=== PATIENT | female | born 1935 | race Caucasian/White ===

== ENCOUNTER → 2017-08-11 | Outpatient (CLI) | payer MEDICARE, OTHER ==
[~2017-08-11] MED LIST: ACET500T68 PO; ANAS1TAB34 PO; ASPI-1471 PO; ATOR10TA65 PO; ATOR20TA22 PO; BETA15CR2 TP; HYDR-420 PO; LEVO25TA57 PO; LEVO25TA61 PO; NOR25 PO; OMEP-137 PO; TRI50 FT; TRIA-20 PO
--- NOTE | 2017-08-11 11:41 | RADIOLOGY IMAGING REPORT ---
FACILITY: [facility] PATIENT NAME: Oralia Perez : 1935 MR: [id number] V: [id number] EXAM DATE: ORDERING PHYSICIAN: JERAD LANE TECHNOLOGIST: Location: [facility] Patient: Oralia Perez : 1935 Visit/Account:[id number] Date of Sevice: 08/11/2017 Exam type: CHEST wall ultrasound History: Hx of cancer, double mastectomy, pain in tissue of ches Comparison: None. Findings: Multiple images were taken over the anterior chest wall bilaterally revealing no abnormal collections or mass lesions. There is no evidence of acoustic shadowing. IMPRESSION: 1. No abnormality of the anterior chest wall was identified sonographically. Clinical follow-up rec ommended for patient's palpable findings Report Dictated By: Nuha Lomas MD at 08/11/2017 11:36 AM Report E-Signed By: Nuha Lomas MD at 08/11/2017 11:37 AM WSN:[email or web address]
== END ==
LOC: US 04:36
PROVIDERS: ATTEND Family Medicine
DX: R22.9 Localized swelling, mass and lump, unspecified (principal); Z90.13 Acquired absence of bilateral breasts and nipples; R52 Pain, unspecified; Z85.3 Personal history of malignant neoplasm of breast
CPT/HCPCS: 76604

== ENCOUNTER → 2018-01-15 | Outpatient (CLI) | payer MEDICARE, OTHER, MEDICAID ==
[~2018-01-15] MED LIST changes: +DICL100G39 TOP; +LISI5TAB25 PO
[2018-01-15 17:58] LABS: PLATELET COUNT, AUTOMATED 229 K/uL (150-450)
== END ==
LOC: LAB 16:13
PROVIDERS: ATTEND Family Medicine
DX: I10 Essential (primary) hypertension (principal)
CPT/HCPCS: 36415; 82040; 82247; 82310; 82374; 82435; 82565; 82947; 84075; 84132; 84155; 84295; 84443; 84450; 84460; 84520; 85025

== ENCOUNTER → 2018-01-31 | Outpatient (CLI) | payer MEDICARE, OTHER, MEDICAID ==
--- NOTE | 2018-01-31 09:55 | RADIOLOGY IMAGING REPORT ---
FACILITY: [facility] PATIENT NAME: Oralia Perez : 1935 MR: [id number] V: [id number] EXAM DATE: ORDERING PHYSICIAN: JERAD LANE TECHNOLOGIST: Location: [facility] - [place] Patient: Oralia Perez : 1935 Visit/Account:[id number] Date of Sevice: 01/31/2018 Exam type: CHEST PA AND LAT History: Chest wall tenderness, mastectomy in 2012 Comparison: None. Findings: The lungs are free of acute effusions, infiltrates or edema. Cardiac silhouette is normal in size. There is marked ectasia the thoracic aorta. Vertebroplasty changes are seen in the upper lumbar spin e. The spinal stimulator projecting over the thoracic spine. IMPRESSION: 1. No acute cardiac pulmonary process is seen Report Dictated By: Nuha Lomas MD at 01/31/2018 9:19 AM Report E-Signed By: Nuha Lomas MD at 01/31/2018 9:50 AM WSN:[email or web address]
--- NOTE | 2018-01-31 09:56 | RADIOLOGY IMAGING REPORT ---
[place] [facility] [place] NAME: Oralia Perez : 1935 MR: [id number] V: [id number] EXAM DATE: ORDERING PHYSICIAN: JERAD LANE TECHNOLOGIST: Location: [facility] Patient: Oralia Perez : 1935 Visit/Account:[id number] Date of Sevice: 01/31/2018 Exam type: CHEST History: lumps bilateral, patient feels changing and tender Comparison: August 11, 2017. Findings: Multiple sonographic images were obtained over the right and left lateral anterior chest wall in loca tion of patient's palpable findings. There is no demonstration of solid mass or cystic lesion. IMPRESSION: 1. No sonographic abnormality identified over the right or left lateral chest wall in location of pa tient's apparent palpable findings. If this remains of strong clinical concern MR of the chest wall may be helpful with and without contrast Report Dictated By: Nuha Lomas MD at 01/31/2018 9:50 AM Report E-Signed By: Nuha Lomas MD at 01/31/2018 9:52 AM WSN:[email or web address]
== END ==
LOC: US 07:04
PROVIDERS: ATTEND Family Medicine
DX: C50.919 Malignant neoplasm of unspecified site of unspecified female breast (principal); R07.89 Other chest pain
CPT/HCPCS: 71046; 76604

== ENCOUNTER → 2018-04-10 | Outpatient (CLI) | payer MEDICARE, MEDICAID ==
[~2018-04-10] MED LIST changes: +[UNRECOGNIZED DRUG - CODE] PO
== END ==
LOC: ZZSPRING 01:18
PROVIDERS: ATTEND Family Medicine
DX: N18.9 Chronic kidney disease, unspecified (principal)
CPT/HCPCS: 36415; 82040; 82247; 82310; 82374; 82435; 82565; 82947; 84075; 84132; 84155; 84295; 84450; 84460; 84520

== ENCOUNTER → 2018-07-06 | Outpatient (CLI) | payer MEDICARE, MEDICAID ==
[~2018-07-06] MED LIST changes: +MULT1CAP59 PO; +OXYC5CAP21 PO
== END ==
LOC: MRI 01:48
PROVIDERS: ATTEND Family Medicine
DX: Z02.9 Encounter for administrative examinations, unspecified (principal)

== ENCOUNTER → 2018-07-10 | Outpatient (CLI) | payer MEDICARE, MEDICAID | LOC: US 01:21 | PROVIDERS: ATTEND Family Medicine | DX: Z02.9 Encounter for administrative examinations, unspecified (principal) ==

== ENCOUNTER 2018-07-21 09:12 | Emergency (ER) | payer MEDICARE, MEDICAID ==
--- NOTE | 2018-07-21 09:14 | ER Report ---
History and Physical Time Seen By MD: 09:16 HPI/ROS CHIEF COMPLAINT: Abdominal pain HISTORY OF PRESENT ILLNESS: Patient is an 83-year-old female who has been experiencing abdominal pain over the last 3 weeks. She has seen her primary care provider and is scheduled for imaging if the pain persist. The son who takes care of both of his parents just found out last evening that she is having fairly severe pain so he brought her to the emergency department for evaluation. Patient has a history of back surgeries in pain and has some "electrodes in her spine" that prevent her from getting an MRI. She states the pain is currently 7 out of 10 in intensity. She reports some nausea with it. She denies any diarrhea. Last bowel movement was last night. She does report problems with constipation and is prescribed stool softeners but is not taking. She is on chronic opiate pain medication which is oxycodone. She denies any fevers or chills. She reports her last meal was this morning at approximately 8:15 and was oatmeal. REVIEW OF SYSTEMS: Constitutional: No fever, no chills. Eyes: No discharge. ENT: No sore throat. Cardiovascular: No chest pain, no palpitations. Respiratory: No cough, no shortness of breath. Gastrointestinal: Right lower quadrant abdominal pain Genitourinary: No hematuria. Musculoskeletal: No back pain. Skin: No rashes. Neurological: No headache. Allergies: Coded Allergies: No Known Drug Allergies (Unverified , 06/08/17) Home Meds Active Scripts Oxycodone Hcl (OXYCODONE HCL) 5 Mg Capsule, 0.5 TAB PO DAILY PRN for pain for 30 Days, #15 CAPSULE Prov:JERAD LANE MD 07/10/18 Lisinopril (LISINOPRIL) 5 Mg Tablet, 1.5 TAB PO DAILY for 90 Days, #135 TAB 4 Refills Prov:JERAD LANE MD 06/26/18 Atorvastatin Calcium (ATORVASTATIN CALCIUM) 10 Mg Tablet, 1 TAB PO QODAY for 90 Days, #90 TAB 3 Refills Prov:JERAD LANE MD 04/03/18 Diclofenac Sodium 1% Gel (VOLTAREN 1% GEL) 100 Gm Gel..gram., 2 GM TOP BID for 30 Days, #1 TUBE 5 Refills Prov:JERAD LANE MD 10/16/18 Diclofenac Sodium 1% Gel (VOLTAREN 1% GEL) 100 Gm Gel..gram., 2 GM TOP QID for 30 Days, #1 TUBE 3 Refills Prov:JERAD LANE MD 11/09/17 Anastrozole (ANASTROZOLE) 1 Mg Tablet, 1 MG PO DAILY for 90 Days, #90 TAB 4 Refills Prov:JERAD LANE MD 07/12/17 Betamethasone/Propylene Glyc (BETAMETHASONE DP AUG 0.05% CRM) 15 Gm Cream..g., 15 GM TP BID for 14 Days, #1 TUBE Prov:JERAD LANE MD 06/08/17 Reported Medications Multivitamin (MULTIVITAMINS) 1 Each Capsule, 1 CAP PO DAILY, CAPSULE Multivitamin of Pts choice. Wants Iron Free 06/04/18 Acetaminophen (TYLENOL EXTRA STRENGTH) 500 Mg Tablet, 1-2 TAB PO TID, CAP 2 tabs po am and HS 1 tab po at noon 08/05/17 Aspirin (ASPIR 81) 81 Mg Tablet.dr, 1 TAB PO HS, TAB 06/08/17 Past Medical/Surgical History Past medical history for hyperlipidemia, osteoporosis, hypothyroidism, history of breast cancer with double mastectomy in 2012, laminectomy in 2013, chronic pain Smoking Status: Never Smoker Constitutional Vital Sign - Last 24 Hours 07/21/18 07/21/18 07/21/18 07/21/18 09:12 09:19 09:23 09:27 Temp 96.7 Pulse ??? 76 73 Resp 16 B/P (MAP) 111/56 111/56 (74) Pulse Ox 90 89 O2 Delivery Room Air 07/21/18 07/21/18 07/21/18 07/21/18 09:30 09:42 09:57 10:00 Pulse 73 ??? B/P (MAP) 101/54 (70) ???/??? (5942) Pulse Ox 89 07/21/18 07/21/18 07/21/18 07/21/18 10:06 10:12 10:27 10:30 Pulse 74 76 B/P (MAP) 113/62 (79) 116/62 (80) Pulse Ox 89 95 07/21/18 07/21/18 07/21/18 10:42 10:57 11:00 Pulse 73 68 B/P (MAP) 112/61 (78) Pulse Ox 94 95 Physical Exam General/Constitutional: Patient is awake, alert, nontoxic and in no acute respiratory distress. Head: Normocephalic and atraumatic. Eyes: Conjunctival clear, Pupils are equal and reactive to light. Extraocular muscles are intact and symmetrical. Sclera are clear and anicteric. Ears:External canals are clear. Tympanic membranes are clear with normal landmarks and light reflex. Nares: No rhinorrhea or bleeding. Turbinates are pink and moist. Oropharyngeal: Mucous membranes are moist. There is no pharyngeal erythema or exudate. There are no palatal petechiae. Uvula is midline and symmetrical. Neck: Supple, no adenopathy. Cardiovascular: Heart is regular rate and rhythm without audible murmurs, rubs or gallops. Pulmonary: Lungs are clear to auscultation bilaterally. There are no wheezes, rales, or rhonchi. Chest rise is symmetrical Abdomen: Soft, objective right lower quadrant pain but no guarding or peritoneal signs. Extremities: No gross deformities, No peripheral cyanosis. Able to move all 4 extremities. Neuro: Alert and oriented X3, Skin: No rashes, skin is warm dry and well perfused. Medical Decision Making Data Points Result Diagram: 07/21/18 0925 07/21/18 0925 Laboratory Hematology Test 07/21/18 09:25 07/21/18 10:30 Red Blood Count 4.88 M/uL (4.17-5.56) Mean Corpuscular Volume 95.5 fL (80.0-96.0) Mean Corpuscular Hemoglobin 31.3 pg (26.0-33.0) Mean Corpuscular Hemoglobin Concent 32.8 g/dL (32.0-36.0) Red Cell Distribution Width 13.4 % (11.5-14.5) Mean Platelet Volume 8.2 fL (7.2-11.1) Neutrophils (%) (Auto) 67.0 % (39.4-72.5) Lymphocytes (%) (Auto) 17.5 % (17.6-49.6) Monocytes (%) (Auto) 13.6 % (4.1-12.4) Eosinophils (%) (Auto) 0.8 % (0.4-6.7) Basophils (%) (Auto) 1.1 % (0.3-1.4) Nucleated RBC Relative Count (auto) 0.1 /100WBC Neutrophils # (Auto) 3.8 K/uL (2.0-7.4) Lymphocytes # (Auto) 1.0 K/uL (1.3-3.6) Monocytes # (Auto) 0.8 K/uL (0.3-1.0) Eosinophils # (Auto) 0.0 K/uL (0.0-0.5) Basophils # (Auto) 0.1 K/uL (0.0-0.1) Nucleated RBC Absolute Count (auto) 0.00 K/uL Peripheral Blood Smear No Y/N Sodium Level 140 mmol/L (137-145) Potassium Level 4.3 mmol/L (3.5-5.0) Chloride Level 111 mmol/L (98-107) Carbon Dioxide Level 24 mmol/L (22-31) Blood Urea Nitrogen 34 mg/dl (7-18) Creatinine 1.40 mg/dl (0.52-1.04) Glomerular Filtration Rate Calc 35.7 Random Glucose 102 mg/dl (75-110) Calcium Level 8.7 mg/dl (8.4-10.2) Total Bilirubin 0.7 mg/dl (0.2-1.3) Aspartate Amino Transf (AST/SGOT) 40 U/L (0-35) Alanine Aminotransferase (ALT/SGPT) 24 U/L (0-56) Alkaline Phosphatase 55 U/L (0-126) Total Protein 7.4 g/dl (6.3-8.2) Albumin 4.1 g/dl (3.5-5.0) Lipase 121 U/L (23-300) Helicobacter pylori IgG Antibody Negative (NEGATIVE) Urine Color Yellow Urine Clarity Clear Urine pH 5.0 pH (4.8-9.5) Urine Specific [place] >1.060 Urine Protein Negative mg/dL (NEGATIVE) Urine Glucose (UA) Negative mg/dL (NEGATIVE) Urine Ketones Negative mg/dL (NEGATIVE) Urine Blood Negative (NEGATIVE) Urine Nitrite Negative (NEGATIVE) Urine Bilirubin Negative (NEGATIVE) Urine Urobilinogen Negative mg/dL (0.2-1.9) Urine Leukocyte Esterase Negative (NEGATIVE) Urine RBC <1 /HPF (0-2/HPF) Urine WBC 2 /HPF (0-5/HPF) Urine Squamous Epithelial Cells None /LPF (NONE-FEW) Urine Bacteria Negative /HPF (NONE-FEW) Urine Mucus Few /HPF (NONE-FEW) Chemistry Test 07/21/18 09:25 07/21/18 10:30 White Blood Count 5.6 k/uL (4.5-11.0) Red Blood Count 4.88 M/uL (4.17-5.56) Hemoglobin 15.3 g/dL (12.0-16.0) Hematocrit 46.6 % (34.0-47.0) Mean Corpuscular Volume 95.5 fL (80.0-96.0) Mean Corpuscular Hemoglobin 31.3 pg (26.0-33.0) Mean Corpuscular Hemoglobin Concent 32.8 g/dL (32.0-36.0) Red Cell Distribution Width 13.4 % (11.5-14.5) Platelet Count 194 K/uL (150-450) Mean Platelet Volume 8.2 fL (7.2-11.1) Neutrophils (%) (Auto) 67.0 % (39.4-72.5) Lymphocytes (%) (Auto) 17.5 % (17.6-49.6) Monocytes (%) (Auto) 13.6 % (4.1-12.4) Eosinophils (%) (Auto) 0.8 % (0.4-6.7) Basophils (%) (Auto) 1.1 % (0.3-1.4) Nucleated RBC Relative Count (auto) 0.1 /100WBC Neutrophils # (Auto) 3.8 K/uL (2.0-7.4) Lymphocytes # (Auto) 1.0 K/uL (1.3-3.6) Monocytes # (Auto) 0.8 K/uL (0.3-1.0) Eosinophils # (Auto) 0.0 K/uL (0.0-0.5) Basophils # (Auto) 0.1 K/uL (0.0-0.1) Nucleated RBC Absolute Count (auto) 0.00 K/uL Peripheral Blood Smear No Y/N Glomerular Filtration Rate Calc 35.7 Calcium Level 8.7 mg/dl (8.4-10.2) Total Bilirubin 0.7 mg/dl (0.2-1.3) Aspartate Amino Transf (AST/SGOT) 40 U/L (0-35) Alanine Aminotransferase (ALT/SGPT) 24 U/L (0-56) Alkaline Phosphatase 55 U/L (0-126) Total Protein 7.4 g/dl (6.3-8.2) Albumin 4.1 g/dl (3.5-5.0) Lipase 121 U/L (23-300) Helicobacter pylori IgG Antibody Negative (NEGATIVE) Urine Color Yellow Urine Clarity Clear Urine pH 5.0 pH (4.8-9.5) Urine Specific [place] >1.060 Urine Protein Negative mg/dL (NEGATIVE) Urine Glucose (UA) Negative mg/dL (NEGATIVE) Urine Ketones Negative mg/dL (NEGATIVE) Urine Blood Negative (NEGATIVE) Urine Nitrite Negative (NEGATIVE) Urine Bilirubin Negative (NEGATIVE) Urine Urobilinogen Negative mg/dL (0.2-1.9) Urine Leukocyte Esterase Negative (NEGATIVE) Urine RBC <1 /HPF (0-2/HPF) Urine WBC 2 /HPF (0-5/HPF) Urine Squamous Epithelial Cells None /LPF (NONE-FEW) Urine Bacteria Negative /HPF (NONE-FEW) Urine Mucus Few /HPF (NONE-FEW) Urinalysis Test 07/21/18 10:30 Urine Color Yellow Urine Clarity Clear Urine pH 5.0 pH (4.8-9.5) Urine Specific [place] >1.060 Urine Protein Negative mg/dL (NEGATIVE) Urine Glucose (UA) Negative mg/dL (NEGATIVE) Urine Ketones Negative mg/dL (NEGATIVE) Urine Blood Negative (NEGATIVE) Urine Nitrite Negative (NEGATIVE) Urine Bilirubin Negative (NEGATIVE) Urine Urobilinogen Negative mg/dL (0.2-1.9) Urine Leukocyte Esterase Negative (NEGATIVE) Urine RBC <1 /HPF (0-2/HPF) Urine WBC 2 /HPF (0-5/HPF) Urine Squamous Epithelial Cells None /LPF (NONE-FEW) Urine Bacteria Negative /HPF (NONE-FEW) Urine Mucus Few /HPF (NONE-FEW) EKG/Imaging Imaging FACILITY: [facility] PATIENT NAME: Oralia Perez : 1935 MR: [id number] V: [id number] EXAM DATE: ORDERING PHYSICIAN: VADIM PATTEN TECHNOLOGIST: [place] [facility] [place]: Oralia Perez : 1935 Visit/Account:[id number] Date of [facility]: 07/21/2018 CT ABDOMEN PELVIS W/ CON COMPARISON: None. HISTORY: Right lower quadrant abdominal pain TECHNIQUE: Axial CT abdomen and pelvis with intravenous contrast. Coronal and sagittal reformats. One of the following dose optimization techniques was utilized in the performance of this exam: automated exposure control; adjustment of the mA and/or kV according to patient size; or use of iterative reconstruction technique. Specific details can be referenced in the facility's radiology CT exam operational policy. CONTRAST: 75 mL of IV Isovue-370. FINDINGS: LUNG BASES: Moderate mitral annulus calcifications, mild left coronary artery calcifications and distal thoracic aorta atherosclerotic calcifications. Granulomatous calcifications in the left lower lobe. LIVER: Granulomatous calcifications from old healed infection. BILIARY: Negative. SPLEEN: Granulomatous calcifications from old healed infection. PANCREAS: Age-related atrophy. No well-defined mass. There bike calcifications appear to be splenic artery calcifications. ADRENALS: Negative. KIDNEYS: Too small to characterize probable cysts bilaterally, upper pole right kidney and lower pole left kidney. Otherwise negative. No hydronephrosis, appreciable stone or evidence of pyelonephritis. GI/MESENTERY: Sigmoid diverticulosis. No bowel wall thickening, mass or obstruction. No abdominal ascites. Trace free fluid in the deep pelvis adjacent to the rectosigmoid. No loculated collections or free air. Appendix is not iden tified.. VASCULAR: Moderate vascular calcifications.. Mild celiac and SMA calcifications without significant mesenteric artery stenosis. LYMPH NODES: Negative. BLADDER: Under distended but unremarkable. PELVIC ORGANS: Small uterus consistent with postmenopausal state. Right ovary not identified with confidence. Left adnexal cyst presumably in the left ovary, measuring 1.9 x 2.7 cm on series 2 image 94. BONES: Mild lower thoracic spine, advanced lumbar spine degenerative changes. M oderate chronic L1, L2, L3 compression fracture deformities with previous vertebroplasty changes at L2. Degenerative changes in the SI joints and hips. Multilevel laminectomy changes, lumbar spine. OTHER: Grade gluteal fat battery pack with electrodes extending into the lower thoracic spinal canal extending off the superior margin of this exam. Partial fatty atrophy of the gluteus minimus and medius musculature bilaterally. Small fat-containing right internal hernia. IMPRESSION: 1. Sigmoid diverticulosis without definitive evidence of diverticulitis or other acute bowel pathology. Trace free fluid in the deep pelvis adjacent to the rectosigmoid is nonspecific, probably reactive to a low-grade inflammatory process which is otherwise not directly identified. 2. Sequela of old healed granulomatous disease in the liver, spleen and left lower lobe. 3. Moderate diffuse vascular calcifications without significant mesenteric artery stenoses. 4. Spinal stimulator. 5. 2.7 cm left ovarian cyst. Nonemergent pelvic ultrasound follow-up recommended at some point given the patient's age. Report Dictated By: Jessee Fischer at 07/21/2018 10:28 AM Report E-Signed By: Jessee Fischer at 07/21/2018 10:37 AM WSN:[id number] ED Course/Re-evaluation Clinical Indication for ER IV: IV Access ED Course 07/21/2018 9:32:30 am After history and physical exam was performed differential diagnosis was formulated which includes but is not limited to acute appendicitis, mesenteric adenitis, bowel obstruction, urinary tract infection. Plan at this time will be abdominal workup including CBC comprehensive metabolic panel, lipase, urinalysis we will also obtain a CT scan of the abdomen and pelvis with IV contrast. We will give the patient 2 mg of morphine for pain along with 4 mg of Zofran for nausea. 07/21/2018 11:00:42 am patient a total of 6 mg of morphine and 500 mg of oral Naprosyn for pain. She reports improvement in pain. CT scan shows nothing acute blood work is reassuring discharge patient home with follow-up instructions to see her primary care provider. Decision to Disposition Date: Jul 21, 2018 Decision to Disposition Time: 11:34 Depart Departure Latest Vital Signs Vital Signs Date Time Temp Pulse Resp B/P (MAP) Pulse Ox O2 Delivery O2 Flow Rate FiO2 07/21/18 11:00 112/61 (78) 07/21/18 10:57 68 95 07/21/18 09:19 96.7 16 Room Air Impression: Primary Impression: Abdominal pain Condition: Improved Disposition: HOME OR SELF-CARE Referrals: JERAD LANE MD (PCP) Call to schedule a follow up appointment with your primary care provider in the next 1-2 weeks for recheck of your abdominal pain Patient Instructions: Abdominal Pain (ED), Chronic Back Pain (ED) Additional Instructions: Increase the amount of fluids while consuming as your lab work showed that you were slightly dehydrated. Hydration is important to prevent constipation. If you're abdominal pain worsens at any time or if you develop intractable vomiting or you develop fever; you should return to the emergency department immediately for reevaluation. Problem Qualifiers Primary Impression: Abdominal pain Abdominal location: right lower quadrant Qualified Codes: R10.31 - Right lower quadrant pain VADIM PATTEN MD Jul 21, 2018 09:14
[2018-07-21] MEDS ORDERED: NS(*) 0.9% 1000 ML BAG 1,000 ML IV ONE (09:28)
[2018-07-21] MEDS ORDERED: ONDANSETRON 4 MG/2 ML VIAL IVP ONE (09:30)
[2018-07-21] MEDS ORDERED: MORPHINE 2 MG/ML SYR IVP ONE (09:30)
[2018-07-21 09:42] LABS: PLATELET COUNT, AUTOMATED 194 K/uL (150-450)
[2018-07-21] MEDS ORDERED: IOPAMIDOL 76% 50 ML INFUS BTL 100 ML ONE (09:49)
[2018-07-21] MEDS ORDERED: NAPROXEN 500 MG TAB PO ONE (10:35)
[2018-07-21] MEDS ORDERED: MORPHINE 4 MG/ML SDV IVP ONE (10:40)
--- NOTE | 2018-07-21 10:41 | RADIOLOGY IMAGING REPORT ---
FACILITY: [facility] - [place] PATIENT NAME: Oralia Perez : 1935 MR: [id number] V: [id number] EXAM DATE: ORDERING PHYSICIAN: VADIM PATTEN TECHNOLOGIST: [facility] Patient: Oralia Perez : 1935 Visit/Account:[id number] Date of Sevice: 07/21/2018 CT ABDOMEN PELVIS W/ CON COMPARISON: None. HISTORY: Right lower quadrant abdominal pain TECHNIQUE: Axial CT abdomen and pelvis with intravenous contrast. Coronal and sagittal reformats. O ne of the following dose optimization techniques was utilized in the performance of this exam: autom ated exposure control; adjustment of the mA and/or kV according to patient size; or use of iterative reconstruction technique. Specific details can be referenced in the facility's radiology CT exam ope rational policy. CONTRAST: 75 mL of IV Isovue-370. FINDINGS: LUNG BASES: Moderate mitral annulus calcifications, mild left coronary artery calcifications and dis sarina thoracic aorta atherosclerotic calcifications. Granulomatous calcifications in the left lower lob e. LIVER: Granulomatous calcifications from old healed infection. BILIARY: Negative. SPLEEN: Granulomatous calcifications from old healed infection. PANCREAS: Age-related atrophy. No well-defined mass. There bike calcifications appear to be splenic artery calcifications. ADRENALS: Negative. KIDNEYS: Too small to characterize probable cysts bilaterally, upper pole right kidney and lower lien e left kidney. Otherwise negative. No hydronephrosis, appreciable stone or evidence of pyelonephritis . GI/MESENTERY: Sigmoid diverticulosis. No bowel wall thickening, mass or obstruction. No abdominal as cites. Trace free fluid in the deep pelvis adjacent to the rectosigmoid. No loculated collections or free air. Appendix is not identified.. VASCULAR: Moderate vascular calcifications.. Mild celiac and SMA calcifications without significant mesenteric artery stenosis. LYMPH NODES: Negative. BLADDER: Under distended but unremarkable. PELVIC ORGANS: Small uterus consistent with postmenopausal state. Right ovary not identified with co nfidence. Left adnexal cyst presumably in the left ovary, measuring 1.9 x 2.7 cm on series 2 image 94 . BONES: Mild lower thoracic spine, advanced lumbar spine degenerative changes. Moderate chronic L1, L 2, L3 compression fracture deformities with previous vertebroplasty changes at L2. Degenerative tierney es in the SI joints and hips. Multilevel laminectomy changes, lumbar spine. OTHER: Grade gluteal fat battery pack with electrodes extending into the lower thoracic spinal canal extending off the superior margin of this exam. Partial fatty atrophy of the gluteus minimus and me dius musculature bilaterally. Small fat-containing right internal hernia. IMPRESSION: 1. Sigmoid diverticulosis without definitive evidence of diverticulitis or other acute bowel patholo gy. Trace free fluid in the deep pelvis adjacent to the rectosigmoid is nonspecific, probably reactiv e to a low-grade inflammatory process which is otherwise not directly identified. 2. Sequela of old healed granulomatous disease in the liver, spleen and left lower lobe. 3. Moderate diffuse vascular calcifications without significant mesenteric artery stenoses. 4. Spinal stimulator. 5. 2.7 cm left ovarian cyst. Nonemergent pelvic ultrasound follow-up recommended at some point given the patient's age. Report Dictated By: Jessee Fischer at 07/21/2018 10:28 AM Report E-Signed By: Jessee Fischer at 07/21/2018 10:37 AM WSN:[id number]
[2018-07-21 11:00] VITALS: BP 112/61
== END 2018-07-21 11:45 | disposition home or self-care (01) ==
LOC: ER 09:17
DX: R10.31 Right lower quadrant pain (principal)
CPT/HCPCS: 74177; 81001; 83690; 85025; 86677; 96361; 96374; 96375; 96376; 99284; A4353; A9270; J2270; J2405; J7030; Q9967; 82040; 82247; 82310; 82374; 82435; 82565; 82947; 84075; 84132; 84155; 84295; 84450; 84460; 84520

== ENCOUNTER → 2018-09-11 | Outpatient (CLI) | payer MEDICARE, OTHER, MEDICAID ==
[~2018-09-11] MED LIST changes: +NAPR220T5 PO
== END ==
LOC: ZZSPRING 01:29
PROVIDERS: ATTEND Family Medicine
DX: N17.9 Acute kidney failure, unspecified (principal)
CPT/HCPCS: 36415; 82310; 82374; 82435; 82565; 82947; 84132; 84295; 84520

== ENCOUNTER → 2018-10-30 | Outpatient (CLI) | payer MEDICARE, MEDICAID ==
[2018-10-30 08:34] LABS: PLATELET COUNT, AUTOMATED 203 K/uL (150-450)
== END ==
LOC: ZZSPRING 01:33
PROVIDERS: ATTEND Internal Medicine Hematology
DX: C50.919 Malignant neoplasm of unspecified site of unspecified female breast (principal)
CPT/HCPCS: 36415; 82040; 82247; 82310; 82374; 82435; 82565; 82947; 84075; 84132; 84155; 84295; 84450; 84460; 84520; 85025; 86300

== ENCOUNTER → 2018-11-08 | Outpatient (CLI) | payer MEDICARE, OTHER, MEDICAID ==
--- NOTE | 2018-11-08 15:25 | RADIOLOGY IMAGING REPORT ---
FACILITY: [facility] PATIENT NAME: Oralia Perez : 1935 MR: [id number] V: [id number] EXAM DATE: ORDERING PHYSICIAN: JERAD LANE TECHNOLOGIST: Location: [facility] Patient: Oralia Perez : 1935 Visit/Account:[id number] Date of Sevice: 11/08/2018 Exam type: 3 views right shoulder History: Shoulder pain Comparison: None. Findings: There is no acute fracture or dislocation of the right shoulder. Patient is osteopenic and degenerat digna changes of the greater tuberosity are noted with cystic changes. Acromion is flat. Surgical clips are noted in the right axilla. The patient has some epidural pain lead is projecting over the thoracic spine. IMPRESSION: 1. Degenerative changes project over the greater tuberosity of the humerus. No acute fracture or di slocation. Report Dictated By: Greg Hamlin MD at 11/08/2018 3:18 PM Report E-Signed By: Greg Hamlin MD at 11/08/2018 3:19 PM WSN:[email or web address]
== END ==
LOC: RAD 14:24
PROVIDERS: ATTEND Family Medicine
DX: M25.511 Pain in right shoulder (principal)

== ENCOUNTER 2018-11-09 11:32 | Outpatient (RCR) | payer MEDICARE, MEDICAID ==
[2018-09-27 14:38] VITALS: BP 179/88
[2018-09-27 15:43] LABS: PLATELET COUNT, AUTOMATED 213 K/uL (150-450)
--- NOTE | 2018-09-27 16:37 | RADIOLOGY IMAGING REPORT ---
FACILITY: [facility] PATIENT NAME: Oralia Perez : 1935 MR: [id number] V: [id number] EXAM DATE: ORDERING PHYSICIAN: MELO RANDALL TECHNOLOGIST: Location: [facility] [place] Patient: Oralia Perez : 1935 Visit/Account:[id number] Date of Sevice: 09/27/2018 Exam type: RIBS RIGHT History: Anterior right rib pain Comparison: Two-view chest January 31, 2018. Findings: AP view the chest and two views of the lower right ribs were submitted There is no radiographic evidence of an acute fracture involving the right ribs. No obvious lytic or blastic bone lesions are seen. Incidentally noted is an S-shaped scoliosis of the thoracal lumbar s pine with multilevel spondylotic changes. Vertebroplasty changes are also noted at L2. Extensive po stoperative changes lower lumbar spine present. Spinal stimulator projects over the thoracic spine.. There is moderate ectasia the thoracic aorta. No evidence of acute pulmonary consolidation or pleu ral effusion. IMPRESSION: 1. No radiographic abnormality of the lower right ribs identified. Additional chronic findings as described Report Dictated By: Nuha Lomas MD at 09/27/2018 4:30 PM Report E-Signed By: Nuha Lomas MD at 09/27/2018 4:33 PM WSN:[email or web address]
--- NOTE | 2018-09-27 21:21 | [facility] ONCOLOGY NOTE ---
EVENT DATE: September 27, 2018 REFERRING PHYSICIAN Tracy Almazan MD REASON FOR CONSULTATION Evaluation and management of possible mass in the right chest wall. ONCOLOGY HISTORY Patient is a very nice 83-year-old female who was diagnosed with right breast cancer in 2012, and the patient ended by having bilateral mastectomies without any adjuvant radiation therapy, chemotherapy, or hormonal therapy. Patient has been followed by Dr. Almazan, her high scaler, and the patient clearly had a bulge below her right axilla. Patient denies any other problem except for having sometimes right shoulder pain and leg pain. She has occasional headache, but generally speaking, she is nearly asymptomatic. PAST MEDICAL HISTORY 1. Hypothyroidism. 2. Osteoporosis. 3. Right breast cancer, status post bilateral mastectomy 2012. 4. Hypertension. 5. Hyperlipidemia. 6. Prolapsed bladder. PAST SURGICAL HISTORY 1. Back surgery 2013. 2. Bilateral mastectomies 2012. 3. Bilateral knee replacements. 4. Ankle surgery. FAMILY HISTORY Brother had prostate cancer, and father had TB. 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 Denies any abuse of tobacco, alcohol, or illicit drugs. CURRENT MEDICATIONS 1. Oxycodone 2.5 mg p.r.n. for pain. 2. Lisinopril 7.5 mg daily. 3. Atorvastatin 10 mg every other day. 4. Voltaren 1% gel topically four times a day. 5. Anastrozole 1 mg tablet daily. 6. Betamethasone/propylene glycol cream topically twice daily. 7. Naproxen 220 mg as needed. 8. Multivitamins one tablet daily. 9. Tylenol Extra Strength 500 mg one to two tablets three times daily. 10. Aspirin 81 mg daily. ALLERGIES No known drug allergies. REVIEW OF SYSTEMS CONSTITUTIONAL: No appetite or weight change. No fever, chills, or sweating. No recent infection. HEENT: Ears: No tinnitus or hearing problem. Nose: No nasal discharge or epistaxis. Throat: No sore throat or mouth ulcers. Eyes: No diplopia or visual changes. RESPIRATORY: No shortness of breath. No cough, expectoration, or hemoptysis. CARDIOVASCULAR: No chest pain, orthopnea, or paroxysmal nocturnal dyspnea (PND). No edema. No palpitations. GASTROINTESTINAL: No nausea or vomiting. No diarrhea or constipation. No change in bowel movements. No heartburn or swallowing difficulties. No abdominal pain. No jaundice. No hematemesis, melena, or rectal bleeding. GENITOURINARY: No hematuria or dysuria. MUSCULOSKELETAL: She has pain in the right shoulder and legs. NEUROLOGIC: No tingling or numbness in the hands or feet. She has occasional headaches. No convulsions. HEMATOLOGIC/LYMPHATIC: No bleeding or easy bruising. No weakness or fatigue. No enlarged lymph nodes. SKIN: No skin rash or lumps. PSYCHIATRIC: No anxiety or depression. PHYSICAL EXAMINATION GENERAL: Looks stable. Well developed, well nourished, and in no acute distress. VITAL SIGNS: Blood pressure 179/88, pulse 80 per minute, respirations 16 per minute, temperature 96.7, pulse ox 94% on room air. HEENT: Head: Atraumatic. No sinus tenderness to palpation. Eyes: No icterus or conjunctivitis. Mouth and Throat: No oral thrush or mucositis. NECK: Supple. No cervical or supraclavicular lymphadenopathy. LUNGS: Clear to auscultation and percussion bilaterally. HEART: Regular rate and rhythm. No gallops, murmurs, clicks, or rubs. ABDOMEN: Soft and lax. No tenderness. No hepatosplenomegaly. No masses. EXTREMITIES: No cyanosis, clubbing, or edema. LYMPHATICS: No peripheral lymphadenopathy. NEUROLOGIC: Conscious, alert, and oriented times three. No focal motor or sensory deficits. PSYCHIATRIC: Mood and affect appear normal. SKIN: No skin rash, bruise, or purpuric eruption. ASSESSMENT 1. Pain with bulge in the right axillary area in a patient with history of right breast cancer. On examination, there are no masses that could be appreciated, but the patient was found to have a prominent rib in that area which is tender to palpation. I am planning to run her CBC, chemistry panel, and her tumor marker for breast cancer with CA27.29, and I am planning also to get right-sided rib view to see if the source of her pain could be due to her osteoporosis as the patient has a history of osteoporosis, too. I am planning to see her after those tests to discuss about further evaluation and management. It seems that the patient was maintained on anastrozole since 2014, and I will talk to her about discontinuing the drug as the patient is over five years since her diagnosis. 2. Hypothyroidism, on treatment. 3. Osteoporosis. 4. Bilateral mastectomies with a history of right breast cancer in 2013. PLAN 1. X-ray right rib view. 2. CBC, chem panel, and CA27.29. 3. Patient to return after the above for further evaluation and management. 4. Patient to contact us for any new concerns or complaints. ANGELICA
[2018-10-12 12:28] VITALS: BP 160/77
--- NOTE | 2018-10-13 02:52 | [facility] ONCOLOGY NOTE ---
EVENT DATE: October 12, 2018 DIAGNOSES Right breast cancer. CHIEF COMPLAINT Patient is here today for followup of her right breast cancer. ONCOLOGY HISTORY Patient is an 83-year-old female who presented in September 2012 with a tender right breast lump. On 18 September 2012, patient was noted to have a 3.5 cm mobile mass, inferomedial quadrant of the right breast. Mammogram on 25 September 2012 showed no abnormalities in the area of the palpable mass; however, at 10 o'clock position of the upper outer quadrant of the right breast, she was noted to have a 1.2 cm mass, BIRADS 5. Patient underwent right breast biopsy with mammographic wire guidance, performed on 01 Nov 2012. There was an area of increased fibrous tissue of the upper outer quadrant of the right breast. She had another small, 15 mm firm area medial and superficial to the main one. Both biopsies showed invasive carcinoma, 1.6 and 1.4 cm in size, with the second lesion having positive margins. 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 ER/OH positive for both lesions. HER2/desi was negative. Patient ended by having bilateral mastectomy with sentinel lymph node biopsy on the right for infiltrating ductal carcinoma. There was no evidence of residual carcinoma, and two sentinel lymph nodes were removed. One was 8 mm; the other one was 18 mm. There was no evidence of lesions on the left breast mastectomy, and no residual or metastatic carcinoma on the right side. Patient has been maintained on hormonal therapy with anastrazole, which was discontinued in September 2018. HISTORY OF PRESENT ILLNESS Patient is here today for followup of her right breast cancer. She is doing fine currently. She has musculoskeletal pain, mainly in the back, shoulders, legs, and knees. She has frequent headache, but other than that, she has been doing very well. PAST MEDICAL HISTORY 1. Hypothyroidism. 2. Osteoporosis. 3. Right breast cancer, status post bilateral mastectomy 2012. 4. Hypertension. 5. Hyperlipidemia. 6. Prolapsed bladder. PAST SURGICAL HISTORY 1. Back surgery 2013. 2. Bilateral mastectomies 2012. 3. Bilateral knee replacements. 4. Ankle surgery. FAMILY HISTORY Brother had prostate cancer, and father had TB. 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 Denies any abuse of tobacco, alcohol, or illicit drugs. CURRENT MEDICATIONS 1. Oxycodone 2.5 mg p.r.n. for pain. 2. Lisinopril 7.5 mg daily. 3. Atorvastatin 10 mg every other day. 4. Voltaren 1% gel topically four times a day. 5. Anastrozole 1 mg tablet daily. 6. Betamethasone/propylene glycol cream topically twice daily. 7. Naproxen 220 mg as needed. 8. Multivitamins one tablet daily. 9. Tylenol Extra Strength 500 mg one to two tablets three times daily. 10. Aspirin 81 mg daily. ALLERGIES No known drug allergies. REVIEW OF SYSTEMS CONSTITUTIONAL: No appetite or weight change. No fever, chills or sweating. No recent infection. HEENT: Ears: No tinnitus or hearing problem. Nose: No nasal discharge or epistaxis. Throat: No sore throat or mouth ulcers. Eyes: No diplopia or visual changes. RESPIRATORY: No shortness of breath. No cough, expectoration or hemoptysis. CARDIOVASCULAR: No chest pain, orthopnea, or paroxysmal nocturnal dyspnea (PND). No edema. No palpitations. GASTROINTESTINAL: No nausea or vomiting. No diarrhea or constipation. No change in bowel movements. No heartburn or swallowing difficulties. No abdominal pain. No jaundice. No hematemesis, melena or rectal bleeding. GENITOURINARY: No hematuria or dysuria. MUSCULOSKELETAL: She has pain in the back, shoulders, legs, and knees. NEUROLOGICAL: She has frequent headache. HEMATOLOGIC/LYMPHATIC: No bleeding or easy bruising. No weakness or fatigue. No enlarged lymph nodes. SKIN: No skin rash or lumps. PSYCHIATRIC: No anxiety or depression. PHYSICAL EXAMINATION GENERAL: Looks stable. Well-developed, well-nourished, and in no acute distress. VITAL SIGNS: Blood pressure 160/77, pulse 82 per minute, respirations 16 per minute, temperature 97.6, pulse oximetry 93% on room air. HEENT: Head: Atraumatic. No sinus tenderness to palpation. Eyes: No icterus or conjunctivitis. Mouth and throat: No oral thrush or mucositis. NECK: Supple. No cervical or supraclavicular lymphadenopathy. LUNGS: Clear to auscultation and percussion bilaterally. HEART: Regular rate and rhythm. No gallops, murmurs, clicks or rubs. ABDOMEN: Soft and lax. No tenderness. No hepatosplenomegaly. No masses. EXTREMITIES: No cyanosis, clubbing or edema. LYMPHATICS: No peripheral lymphadenopathy. NEUROLOGICAL: Conscious, alert and oriented times three. No focal motor or sensory deficits. PSYCHIATRIC: Mood and affect appear normal. SKIN: No skin rash, bruise or purpuric eruption. DIAGNOSTIC/LABORATORY STUDIES CBC showed white count 5.3, hemoglobin 15.6, hematocrit 47.1, platelet 213,000. Chem panel totally normal except BUN 25, creatinine 1.4, total protein 8.3. CA27.29 was mildly elevated at 43.7. The right rib view did not show any abnormality. ASSESSMENT 1. Right breast cancer, status post bilateral mastectomy and right sentinel lymph node biopsy. Patient had wire localization right breast biopsy on 01 Nov 2012. There were two areas. One was 1.6, the other one was 1.4 cm, and they both came back positive for invasive carcinoma. ER/OH positive; HER2/desi was negative. Patient ended by having bilateral mastectomy and right sentinel lymph node biopsy, and two lymph nodes, one 8 mm and the other one 18 mm, were removed. There was no residual carcinoma. Patient was maintained on hormonal therapy with Arimidex since her diagnosis, until it was discontinued recently, in September 2018. Patient was complaining of rib pains, and her rib view was totally negative. Her CA27.29 came back elevated at 43.7. I am planning to see the patient in another month with repeat marker. If the marker continues to rise, then imaging studies will be requested at that time. I explained that to the patient and her son, and they are agreeable with the plan of management. 2. Hypothyroidism, on treatment. 3. Osteoporosis. PLAN 1. Continue followup. 2. Patient to return in one month with CBC, chem panel, CA27.29. 3. Consider imaging study if the CA27.29 continues to rise. 4. Patient to contact us for any new concern or complaints. ANGELICA
[~2018-11-09] VITALS: Ht 147.7 cm; Wt 71.0 kg
[2018-11-09 11:48] VITALS: BP 163/85
--- NOTE | 2018-11-09 22:23 | ONCOLOGY FOLLOW UP NOTE ---
EVENT DATE: November 09, 2018 DIAGNOSES Right breast cancer. CHIEF COMPLAINT Patient is here today for followup of her right breast cancer. ONCOLOGY HISTORY Patient is an 83-year-old female who presented in September 2012 with a tender right breast lump. On the September, patient was noted to have a 3.5 cm mobile mass, inferomedial quadrant of the right breast. Mammogram on the September showed no abnormalities in the area of the palpable mass; however, at 10 o'clock position of the upper-outer quadrant of the right breast, she was noted to have a 1.2 cm mass, BIRADS 5. Patient underwent right breast biopsy with mammographic wire guidance, performed on the October. There was an area of increased fibrous tissue of the upper-outer quadrant of the right breast. She had another small, 15 mm firm area medial and superficial to the main one. Both biopsies showed invasive carcinoma, 1.6 and 1.4 cm in size, with the second lesion having positive margins. 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 ER/FL positive for both lesions. HER2/desi was negative. Patient ended by having bilateral mastectomy with sentinel lymph node biopsy on the right for infiltrating ductal carcinoma. There was no evidence of residual carcinoma, and two sentinel lymph nodes were removed. One was 8 mm; the other one was 18 mm. There was no evidence of lesions on the left breast mastectomy, and no residual or metastatic carcinoma on the right side. Patient has been maintained on hormonal therapy with anastrazole, which was discontinued in September 2018. HISTORY OF PRESENT ILLNESS Patient is here today for followup of her right breast cancer. She is doing fine currently. Apart from having occasional headache and pain in her shoulders, legs, and knees from osteoporosis and arthritis, patient does not have any other problem. PAST MEDICAL HISTORY 1. Hypothyroidism. 2. Osteoporosis. 3. Right breast cancer, status post bilateral mastectomy 2012. 4. Hypertension. 5. Hyperlipidemia. 6. Prolapsed bladder. PAST SURGICAL HISTORY 1. Back surgery 2013. 2. Bilateral mastectomies 2012. 3. Bilateral knee replacements. 4. Ankle surgery. FAMILY HISTORY Brother had prostate cancer, and father had TB. 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 Denies any abuse of tobacco, alcohol, or illicit drugs. CURRENT MEDICATIONS 1. Oxycodone 2.5 mg p.r.n. for pain. 2. Lisinopril 7.5 mg daily. 3. Atorvastatin 10 mg every other day. 4. Voltaren 1% gel topically four times a day. 5. Anastrozole 1 mg tablet daily. 6. Betamethasone/propylene glycol cream topically twice daily. 7. Naproxen 220 mg as needed. 8. Multivitamins one tablet daily. 9. Tylenol Extra Strength 500 mg one to two tablets three times daily. 10. Aspirin 81 mg daily. ALLERGIES No known drug allergies. REVIEW OF SYSTEMS CONSTITUTIONAL: No appetite or weight change. No fever, chills, or sweating. No recent infection. HEENT: Ears: No tinnitus or hearing problem. Nose: No nasal discharge or epistaxis. Throat: No sore throat or mouth ulcers. Eyes: No diplopia or visual changes. RESPIRATORY: No shortness of breath. No cough, expectoration, or hemoptysis. CARDIOVASCULAR: No chest pain, orthopnea, or paroxysmal nocturnal dyspnea (PND). No edema. No palpitations. GASTROINTESTINAL: No nausea or vomiting. No diarrhea or constipation. No change in bowel movements. No heartburn or swallowing difficulties. No abdominal pain. No jaundice. No hematemesis, melena, or rectal bleeding. GENITOURINARY: No hematuria or dysuria. MUSCULOSKELETAL: She has pain in the shoulders, legs, and knees. NEUROLOGIC: No tingling or numbness in the hands or feet. She has occasional headache. No convulsions. HEMATOLOGIC/LYMPHATIC: No bleeding or easy bruising. No weakness or fatigue. No enlarged lymph nodes. SKIN: No skin rash or lumps. PSYCHIATRIC: No anxiety or depression. PHYSICAL EXAMINATION GENERAL: Looks stable. Well developed, well nourished, and in no acute distress. VITAL SIGNS: Blood pressure 163/85, pulse 74 per minute, respirations 16 per minute, temperature 96.8, pulse ox 92% on room air. HEENT: Head: Atraumatic. No sinus tenderness to palpation. Eyes: No icterus or conjunctivitis. Mouth and Throat: No oral thrush or mucositis. NECK: Supple. No cervical or supraclavicular lymphadenopathy. LUNGS: Clear to auscultation and percussion bilaterally. HEART: Regular rate and rhythm. No gallops, murmurs, clicks, or rubs. ABDOMEN: Soft and lax. No tenderness. No hepatosplenomegaly. No masses. EXTREMITIES: No cyanosis, clubbing, or edema. LYMPHATICS: No peripheral lymphadenopathy. NEUROLOGIC: Conscious, alert, and oriented times three. No focal motor or sensory deficits. PSYCHIATRIC: Mood and affect appear normal. SKIN: No skin rash, bruise, or purpuric eruption. DIAGNOSTIC/LABORATORY STUDIES CBC showed white count 4.4, hemoglobin 14.3, hematocrit 42.5, platelet 203,000. Chem panel totally normal except chloride 109 and BUN 20. CA27.29 is normal at 33.1, which is down from 43.7. ASSESSMENT 1. Right breast cancer, status post bilateral mastectomy and right sentinel lymph node biopsy. Patient had wire localization right breast biopsy on the October. There were two areas. One was 1.6 cm, the other one was 1.4 cm, and they both came back positive for invasive carcinoma. ER/FL positive. HER2/desi was negative. Patient ended by having bilateral mastectomy and right sentinel lymph node biopsy, and two lymph nodes, one 8 mm and the other one 18 mm, were removed. There was no residual carcinoma. Patient was maintained on hormonal therapy with Arimidex since her diagnosis until it was discontinued September 2018. Her CA27.29 last visit was high at 43.7, so the patient is seen today to follow up the marker again prior to doing any intervention. Her current marker is back to normal at 33.1. I am planning to continue followup. I will see her again in six months with CBC, chemistry panel, and CA27.29. 2. Hypothyroidism, on treatment. 3. Osteoporosis. PLAN 1. Continue followup. 2. Patient to return in six months with CBC, chem panel, and CA27.29. 3. Consider imaging study if the CA27.29 should continue with rise. 4. Patient to contact us for any new concern or complaints. ANGELICA
== END 2018-11-19 13:43 | disposition home or self-care (01) ==
LOC: ONC 11:32
PROVIDERS: ATTEND Internal Medicine Hematology
DX: Z85.3 Personal history of malignant neoplasm of breast (principal); R22.2 Localized swelling, mass and lump, trunk; E03.9 Hypothyroidism, unspecified; M81.0 Age-related osteoporosis without current pathological fracture
CPT/HCPCS: 71100; 85025; 86300; G0463; 82040; 82247; 82310; 82374; 82435; 82565; 82947; 84075; 84132; 84155; 84295; 84450; 84460; 84520; 99202; 99212

== ENCOUNTER → 2019-02-08 | Outpatient (CLI) | payer MEDICARE, OTHER, MEDICAID ==
[~2019-02-08] MED LIST changes: +ASPI-757 PO; +BUTA1CAP36 PO; +GUAI1CAP3 PO; +OXYC5TAB38 PO
--- NOTE | 2019-02-18 10:15 | RADIOLOGY IMAGING REPORT ---
FACILITY: [facility] - [place], [place] PATIENT NAME: Oralia Perez : 1935 MR: [id number] V: [id number] EXAM DATE: ORDERING PHYSICIAN: JERAD LANE TECHNOLOGIST: [place] [facility] [place]ia [place] : 1935 Visit/Account:[id number] Date of Sevice: 02/08/2019 DEXA Scan 02/08/2019 8:03 AM HISTORY: screening Comparison: None available. LUMBAR SPINE: The bone mineral density (BMD) measured from L1, L3, and L4 correlates with a Z-score -0.4 and a T-sc ore of -2.2 which is severely osteopenic as defined by the World Health Organization. The correspond ing risk of fracture in the lumbar spine is increased 4-6 times compared with a young adult reference population. L2 was excluded due to vertebral body cement. HIP: Bone mineral density (BMD) measured in the Left total hip region correlates with a Z-score 1.1 and a T-score of -1.1 which is mildly osteopenic as defined by the World Health Organization. The correspo nding risk of fracture in the hip is increased 2-3 times compared with a young adult reference popula tion. Bone mineral density (BMD) measured in the Femoral Neck region measures 0.834 g/cm2. T-score is -1.5 . Impression: 1. Lumbar spine: Severe osteopenia. 2. Left Total Hip: Mild osteopenia. 3. Femoral Neck: Bone Mineral Density is 0.834 g/cm2. Moderate osteopenia. The next DEXA scan of this patient should include the following sites: Lumbar spine and the left hip. FRAX? WHO Fracture Risk Assessment Tool link: <http://www.shef.ac.uk/FRAX/tool.jsp?[email or web address]> PLEASE NOTE: 1) The World Health Organization defines low BMD as follows: T-score Normal > -1 Osteopenia < -1 and > -2.5 Osteoporosis < -2.5 without fractures Established osteoporosis < -2.5 with fractures 2) In general, you may wish to consider: Diagnosis Treatment Follow-up DEXA Normal BMD Prevention 2-3 years Osteopenia Prevention/therapy 1-2 years Osteoporosis Therapy Yearly 3) Fracture risk estimated from the T-score is more accurate for vertebral fractures (often spontane ous) than for hip fractures. Report Dictated By: Miguel Angel Mclain MD at 02/11/2019 3:52 PM Report E-Signed By: Miguel Angel Mclain MD at 02/11/2019 3:53 PM WSN:[email or web address]
== END ==
LOC: RAD 02-07 03:55
PROVIDERS: ATTEND Family Medicine
DX: M85.89 Other specified disorders of bone density and structure, multiple sites (principal)
CPT/HCPCS: 77080